=== PATIENT | female | born 1950 | race Caucasian/White ===

== ENCOUNTER → 2016-07-17 18:13 | Outpatient (CLI) | payer OTHER ==
[2015-05-16 13:01] VITALS: BMI 29.4
[~2016-07-17 18:13] MED LIST: ALEVE220 MG PO; CELEXA20 MG PO; HYDROCODONE-APA1 TAB PO; OMEPRAZOLE40 MG PO; PHENERGAN25 M1 PO
== END | disposition home or self-care (01) ==
LOC: D.LABREF 18:13
DX: R31.9 Hematuria, unspecified (principal)

== ENCOUNTER → 2017-02-18 10:00 | Outpatient (CLI) | payer MEDICARE, OTHER ==
[2015-05-16 13:01] VITALS: BMI 29.4
== END | disposition home or self-care (01) ==
LOC: D.MRI 10:00
DX: M25.552 Pain in left hip (principal)

== ENCOUNTER → 2017-02-27 13:27 | Outpatient (CLI) | payer MEDICARE, OTHER ==
[2015-05-16 13:01] VITALS: BMI 29.4
== END | disposition home or self-care (01) ==
LOC: D.MRI 13:27
DX: R10.2 Pelvic and perineal pain (principal)

== ENCOUNTER → 2017-03-19 09:17 | Outpatient (CLI) | payer MEDICARE, OTHER ==
[2015-05-16 13:01] VITALS: BMI 29.4
== END | disposition home or self-care (01) ==
LOC: D.OPS 09:17 → D.SP 09:30 → D.OPS 10:00 → D.SP 10:00
DX: M25.552 Pain in left hip (principal); Z01.812 Encounter for preprocedural laboratory examination

== ENCOUNTER → 2017-07-21 14:01 | Outpatient (CLI) | payer MEDICARE, OTHER ==
[2015-05-16 13:01] VITALS: BMI 29.4
== END | disposition home or self-care (01) ==
LOC: D.CT 14:01
DX: R10.9 Unspecified abdominal pain (principal)